=== PATIENT | female | born 1950 | race Caucasian/White ===

== ENCOUNTER 2018-09-14 05:14 | Observation (INO) ==
[2018-09-14] MEDS ORDERED: Naloxone 0.4 MG/ML INJ IVP PRN (08:35)
[2018-09-14] MEDS ORDERED: *HR* Dextrose 50 % in Water (Syg) 50 ML SYRINGE IVP PRN (08:37)
[2018-09-14] MEDS ORDERED: D5% in Water 1,000 ML IVC PRN (08:37)
[2018-09-14] MEDS ORDERED: Dextrose Gel 15 GM/37.5 ML TUBE PO PRN ×2 (08:37)
[2018-09-14] MEDS ORDERED: D5% in 0.45% NACL 1,000 ML IVC SCH (08:45)
[2018-09-14 11:05] LABS: Bilirubin,Urine Negative (Negative); Blood,Urine Moderate (Negative); Clarity,Urine Clear (Clear); Color,Urine Yellow (Yellow); Glucose,Urine (UA) Normal (Normal); Ketones,Urine Negative (Negative); Leukocyte Esterase,Urine Negative (Negative); Nitrite,Urine Negative (Negative); Protein,Urine Negative (Neg-Trace); Specific Gravity,Urine 1.008 (1.010-1.025); Urobilinogen,Urine Normal (Normal)
--- NOTE | 2018-09-14 11:05 | Internal Med History&Physical ---
Date of Encounter: 09/14/18 Time of Encounter: 10:57 Internal Medicine - H&P: HPI Chief complaint: fever and chills Plans for Post Hospital Care: Home History of present illness: Ms. Washington is a 68 year old female PMH of CLL, lupus and HTN. Patient presented to the ED due to 1 day history of fever and worsening generalized weakness. Patient reports feeling weak for the past week. but yesterday since 5am she has not been feeling well, which she describes as worsening of her weakness. Last night when she went to bed she felt like she was having a fever. which she describes as being diaphoretic and having chills. She took her temperature at home but the her machine did not read it. After this episode of chills and diaphoresis her weakness worsen and she decided to go to the ED. In the ED she was found to have a temperature of 102.7. She was given broad spectrum IV antibiotics and IV fluids and was transferred for further management. The patient reports supra-pubic abdominal pain and increased urinary frequency and urgency since yesterday. denies nausea, vomiting or shortness of breath. Reports she has been treated with antibiotics at least 7 times since April due to sinus infections. Bill any sick contacts. Past Med Surg Social Fam HX - Past Medical History Medical history: cancer, hypertension, other Additional medical history: CLL, lupus - Past Surgical History Surgical History: no surgical history, hysterectomy, orthopedic, other - Social History Smoking Status: Never smoker Smokeless Tobacco Status: No Alcohol use: none Drug use: none Internal Medicine - H&P: Meds ALPRAZolam [Xanax 0.5 MG Tablet] 0.5 mg PO Q8H PRN 05/04/15 [History] Amlodipine [Norvasc] 5 mg PO DAILY 05/04/15 [History] OxyCODONE/APAP 10/325 [Percocet 10/325 MG] 0.5 tab PO TID PRN 05/04/15 [History] Gabapentin [Neurontin] 300 mg PO DAILY 08/13/15 [History] Pantoprazole Sodium [Protonix] 40 mg PO DAILY 05/09/16 [History] Loratadine [Claritin] 10 mg PO DAILY 05/07/18 [History] Allergy/AdvReac Type Severity Reaction Status Date / Time adhesive tape Allergy Rash Verified 09/14/18 02:52 Penicillins [PCN] Allergy Anaphylaxis Verified 09/14/18 02:52 codeine AdvReac Vomiting Verified 09/14/18 02:52 doxycycline AdvReac Vomiting Verified 09/14/18 02:52 All Systems PM: A 10-system review of systems was performed and is negative for pertinent findings except as documented above in the HPI. - Constitutional Constitutional: chills, fever(s), malaise, weakness - EENT Eyes: no irritation, no itchy eyes - Cardiovascular Cardiovascular ROS IM: no chest pain, no dyspnea on exertion, no irregular heart rhythm, no lightheadedness, no orthopnea - Respiratory Respiratory: cough, no hemoptysis, no wheezing, no chest congestion, no excessive phlegm production, no change in phlegm color - Gastrointestinal Gastrointestinal: abdominal pain (supra-pubic area), no dysphagia, no melena, no nausea, no vomiting - Genitourinary Genitourinary: urinary frequency, urinary urgency, no dysuria - Musculoskeletal Musculoskeletal ROS IM: no back pain, no muscle weakness - Integumentary Integumentary IM: no erythema - Neurological Neurological ROS: no frequent falls, no headache(s) - Psychiatric Psychiatric: no anxiety, no hopelessness, no irritability - Endocrine Endocrine IM: no cold intolerance, no excessive sweating - Hematologic/Lymphatic Hematologic/Lymphatic: no lymphadenopathy - Allergic/Immunologic Allergic/Immunologic: no GI upset with certain foods Additional comments: Rest of the review of system negative. - Constitutional Vitals: Temp Pulse Resp BP Pulse Ox 98.5 F 86 16 174/68 96 09/14/18 10:54 09/14/18 10:54 09/14/18 10:54 09/14/18 10:54 09/14/18 10:54 Exam: Vitals: Reviewed General: Alert and oriented x4. In mild distress due to supra-pubic discomfort Skin: Normal color, no rash, no lesions. HEENT: EOM, pupils equal, round and reactive. Cardiovascular: RRR, normal S1 & S2, no rubs, murmurs or gallops. Lungs: CTA b/l, no wheezes or crackles. Abdomen: Soft, mildly tender in the supra-pubic area, no rigidity or guarding. Extremities: No deformity, no edema or tenderness, no joint swelling or clubbing. Neurological: Normal cognition and motor skills. Rest of the physical exam is non contributory Internal Med - H&P Results - Diagnostic Studies Chest x-ray Status: image reviewed by me (no focal abnormalities ) - Assessment and Plan (1) Urinary tract infection Current Visit: No Status: Acute Assessment and plan: patient with frequency, urgency and supra-pubic abdominal pain. started empirically on levofloxacin 750mg/IV daily Urine culture and blood culture ordered. Qualifiers: Urinary tract infection type: acute cystitis Hematuria presence: without hematuria Qualified Code(s): N30.00 - Acute cystitis without hematuria (2) Dehydration Current Visit: Yes Status: Acute Assessment and plan: due to poor PO intake over the past week plus fevere secondary to UTI. patient started on IV hydration with 0.45NS @75ml/hr (3) HTN (hypertension) Current Visit: Yes Status: Chronic Assessment and plan: patient on amlodipine 10mg/PO daily. 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 No B symptoms or indications for Rx. (5) DVT prophylaxis Current Visit: Yes Status: Acute Assessment and plan: started on heparin subq - Time Spent With Patient Total time spent is greater than 50% in coordination of care (as documented) at patient's floor/unit and/or counseling patient: Greater than 35 minutes (45)
[2018-09-14 11:09] LABS: Bacteria,Urine None Seen per hpf (None-Few); Hyaline Casts,Urine None Seen per lpf (None-Few); Squamous Epithelial Cell,Urine Many per lpf (None-Few); WBC,Urine 0-3 per hpf (0-3)
[2018-09-14] MEDS ORDERED: amLODIPine 5 MG TABLET PO SCH (11:15)
[2018-09-14] MEDS: Insulin LISPRO 300 UNITS/3 ML VIAL SQ SCH ×2 (12:39→17:44)
[2018-09-14 13:18] LABS: Estimated Average Glucose 160 mg/dl; Hemoglobin A1C 7.2 %
[2018-09-14] MEDS: *HR* Heparin 5,000 UNIT/ML VIAL SQ SCH ×2 (13:39→20:34)
[2018-09-14] MEDS: ALPRAZolam 0.25 MG TABLET PO SCH (14:28)
[2018-09-14] MEDS: *HR* OxyCODONE/APAP 10/325 TABLET PO PRN ×2 (14:29→20:26)
[2018-09-14] MEDS: amLODIPine 5 MG TABLET PO SCH (20:32)
[2018-09-14] MEDS ORDERED: Gabapentin 300 MG CAPSULE PO SCH (21:00)
[2018-09-14] MEDS ORDERED: ALPRAZolam 0.5 MG TABLET PO SCH (21:00)
[2018-09-15] MEDS: traMADol 50 MG TABLET PO PRN (02:33)
[2018-09-15 03:21] LABS: Hematocrit 38.2 % (35.3-44.9); Mean Corpuscular HGB Conc 31.4 g/dL (31.6-35.5); Mean Corpuscular Hemoglobin 30.4 pg (28.0-33.3); Mean Corpuscular Volume 96.7 fL (83.0-100.0); Platelet Count 133 K/mcL (140-400); Red Blood Count 3.95 M/mcL (3.82-4.97); Red Cell Distribution Width 13.4 % (11.5-14.5)
[2018-09-15 03:40] LABS: BUN/Creatinine Ratio 16 (6-26); Blood Urea Nitrogen 9 mg/dL (8-23); Calcium 9.1 mg/dL (8.6-10.3); Carbon Dioxide 23 mEq/L (23-29); Chloride 108 mEq/L (98-107); Glucose 177 mg/dL (70-105); Magnesium 1.8 mg/dL (1.6-2.6); Osmolality,Calculated 291 (280-300); Phosphorous 1.5 mg/dL (2.7-4.5); Potassium 3.7 mEq/L (3.5-5.1); Sodium 139 mEq/L (136-145); eGFR For Non-African Americans > 60 (> 60)
[2018-09-15 03:45] LABS: Monocytes # 1.7 K/mcL (0.0-1.3); Smudge Cells Present (Not Present)
[2018-09-15 03:46] LABS: Platelet Estimate Slight Decrease (Normal)
[2018-09-15] MEDS: *HR* Heparin 5,000 UNIT/ML VIAL SQ SCH ×3 (05:37→20:20)
[2018-09-15] MEDS: Insulin LISPRO 300 UNITS/3 ML VIAL SQ SCH ×3 (09:04→16:46)
[2018-09-15] MEDS: ALPRAZolam 0.25 MG TABLET PO SCH ×2 (09:07→18:58)
[2018-09-15] MEDS: Levofloxacin 750 MG/150 ML 750 MG/150 ML BAG IVPB SCH (09:07)
[2018-09-15] MEDS: *HR* OxyCODONE/APAP 10/325 TABLET PO PRN ×3 (09:11→21:38)
--- NOTE | 2018-09-15 10:42 | Internal Med Progress Note ---
Hospitalist Progress Note - Encounter Date of Encounter: 09/15/18 Time of Encounter: 10:39 - Subjective Interval History: No fever overnight. Patient is still feeling generalized weak but slight better. Review the lab with elevated white count. Vitals reviewed Patient denies nausea vomiting headache dizziness chest pain shortness of breath. Abdominal pain is better - Exam Vitals: Temp Pulse Resp BP Pulse Ox 98.5 F 89 16 156/75 92 09/15/18 06:39 09/15/18 06:39 09/15/18 06:39 09/15/18 06:39 09/15/18 06:39 Exam: Vitals: Reviewed General: Alert and oriented x4. No acute distress. Skin: Normal color, no rash, no lesions. HEENT: EOM, pupils equal, round and reactive. Cardiovascular: RRR, normal S1 & S2 Lungs: CTA b/l, no wheezes or crackles. Abdomen: Soft, mildly tender in the supra-pubic area, no rigidity or guarding. Extremities: No deformity, no edema Neurological: No focal neurological deficit. - Assessment and Plan (1) Urinary tract infection Current Visit: No Status: Acute Assessment and Plan: patient with frequency, urgency and supra-pubic abdominal pain-slight better clinically. started empirically on levofloxacin 750mg/IV daily Urine culture and blood culture ordered by admitting physician. 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 No B symptoms or indications for Rx. Patient has seen oncologist last week and in the process of discussion to his start further treatment if appropriate (3) HTN (hypertension) Current Visit: Yes Status: Chronic Assessment and Plan: patient on amlodipine 10mg/PO daily. Continue to monitor (4) Dehydration Current Visit: Yes Status: Acute Assessment and Plan: Stopped IV fluid. Encouraged oral intake (5) DVT prophylaxis Current Visit: Yes Status: Acute Assessment and Plan: started on heparin subq - Time Spent with Patient Total time spent is greater than 50% in coordination of care (as documented) at patient's floor/unit and/or counseling patient: 25 - 35 minutes Plan of Care Discussed with: patient Internal Medicine: Result - Labs CBC & Chem 7: 09/15/18 03:09 09/15/18 03:09 Labs: Short CBC 09/15/18 Range/Units 03:09 WBC 82.6 H* (4.3-11.1) K/mcL Hgb 12.0 D (11.5-15.4) g/dL Hct 38.2 (35.3-44.9) % Plt Count 133 L (140-400) K/mcL Neutrophils # 38.0 H (1.6-8.9) K/mcL BMP 09/15/18 03:09 Sodium 139 Potassium 3.7 Chloride 108 H Carbon Dioxide 23 BUN 9 Creatinine 0.56 L Glucose 177 H Calcium 9.1 Urine 09/14/18 Range/Units 10:49 Urine Color Yellow (Yellow) Urine Clarity Clear (Clear) Urine pH 7.0 (5.0-8.0) pH Units Ur Specific Owen 1.008 L (1.010-1.025) Urine Protein Negative (Neg-Trace) mg/dL Urine Glucose (UA) Normal (Normal) mg/dL Consult Discharge Plan - Plan Referrals: NONE,PCP [Primary Care Provider] - (1) Urinary tract infection Qualifiers: Urinary tract infection type: acute cystitis Hematuria presence: without hematuria Qualified Code(s): N30.00 - Acute cystitis without hematuria (3) HTN (hypertension) Qualifiers: Hypertension type: unspecified Qualified Code(s): I10 - Essential (primary) hypertension
[2018-09-15] MEDS ORDERED: ALPRAZolam 0.5 MG TABLET PO PRN (11:35)
[2018-09-15] MEDS ORDERED: Loratadine 10 MG TABLET PO PRN (11:35)
[2018-09-15] MEDS ORDERED: *HR* OxyCODONE/APAP 10/325 TABLET PO PRN (11:35)
[2018-09-15 12:56] LABS: Platelet Count 125 K/mcL (140-400); Red Cell Distribution Width 13.4 % (11.5-14.5)
[2018-09-15 12:57] LABS: Hematocrit 35.7 % (35.3-44.9); Hemoglobin 11.5 g/dL (11.5-15.4); Mean Corpuscular HGB Conc 32.2 g/dL (31.6-35.5); Mean Corpuscular Volume 96.2 fL (83.0-100.0); Mean Platelet Volume 10.2 fL (9.4-12.4); Red Blood Count 3.71 M/mcL (3.82-4.97)
[2018-09-15 13:13] LABS: Lymphocytes # 62.2 K/mcL (0.6-4.6); Neutrophils # 6.9 K/mcL (1.6-8.9); Platelet Estimate Decreased (Normal)
[2018-09-15] MEDS: ALPRAZolam 0.5 MG TABLET PO PRN ×2 (15:35→21:39)
[2018-09-15] MEDS: Gabapentin 300 MG CAPSULE PO SCH (20:18)
[2018-09-15] MEDS: amLODIPine 5 MG TABLET PO SCH (20:18)
[2018-09-16] MEDS: *HR* Heparin 5,000 UNIT/ML VIAL SQ SCH ×3 (05:11→20:49)
[2018-09-16] MEDS: traMADol 50 MG TABLET PO PRN (05:20)
[2018-09-16 06:04] LABS: BUN/Creatinine Ratio 15 (6-26); Blood Urea Nitrogen 8 mg/dL (8-23); Calcium 9.6 mg/dL (8.6-10.3); Carbon Dioxide 24 mEq/L (23-29); Chloride 104 mEq/L (98-107); Glucose 146 mg/dL (70-105); Osmolality,Calculated 291 (280-300); Potassium 3.4 mEq/L (3.5-5.1); Sodium 140 mEq/L (136-145); eGFR For Non-African Americans > 60 (> 60)
[2018-09-16] MEDS: *HR* OxyCODONE/APAP 10/325 TABLET PO PRN ×3 (07:45→21:46)
[2018-09-16] MEDS: Gabapentin 300 MG CAPSULE PO SCH ×2 (07:45→20:48)
[2018-09-16] MEDS: Insulin LISPRO 300 UNITS/3 ML VIAL SQ SCH ×3 (07:46→15:27)
[2018-09-16] MEDS: Levofloxacin 750 MG/150 ML 750 MG/150 ML BAG IVPB SCH (07:46)
--- NOTE | 2018-09-16 13:23 | Internal Med Progress Note ---
Hospitalist Progress Note - Encounter Date of Encounter: 09/16/18 Time of Encounter: 13:21 - Subjective Interval History: Feeling better in urinary complaint. No fever. Review the lab with trending down white count. Denies fever chills nausea vomiting headache dizziness chest pain shortness of breath diarrhea - Exam Vitals: Temp Pulse Resp BP Pulse Ox 98.2 F 77 15 130/66 92 09/16/18 10:18 09/16/18 10:18 09/16/18 10:18 09/16/18 10:18 09/16/18 10:18 Exam: Vitals: Reviewed General: Alert and oriented x4. No acute distress. HEENT: EOM, pupils equal, round and reactive. Cardiovascular: RRR, normal S1 & S2 Lungs: CTA b/l, no wheezes or crackles. Abdomen: Soft, mildly tender in the supra-pubic area-better, no rigidity or guarding. Extremities: No deformity, no edema Neurological: No focal neurological deficit. - Assessment and Plan (1) Urinary tract infection Current Visit: No Status: Acute Assessment and Plan: patient with frequency, urgency and supra-pubic abdominal pain-slight better clinically. started empirically on levofloxacin 750mg/IV daily blood culture ordered by admitting physician- later on got canceled. Urine culture report-? (2) Diabetes mellitus Current Visit: Yes Status: Acute Assessment and Plan: A1c 7.2. Newly diagnosed. Continue Accu-Chek and low-dose SSI. Plan was to discharge patient on low-dose OHA but patient want to discuss with her PCP before starting any medication. Diabetes education. 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 No B symptoms or indications for Rx. Patient has seen oncologist last week and in the process of discussion to consider starting further treatment if appropriate (4) HTN (hypertension) Current Visit: Yes Status: Chronic Assessment and Plan: well controlled. patient on amlodipine 10mg/PO daily. Continue to monitor (5) Dehydration Current Visit: Yes Status: Acute Assessment and Plan: Stopped IV fluid. Encouraged oral intake (6) Leukocytosis Current Visit: Yes Status: Acute Assessment and Plan: Baseline white count in 70s due to underlying CLL. On admission patient had white count and 80s. Initially blood culture was ordered by admitting physician but it got canceled later without mentioning reason. Now white count is trending down and almost back to baseline therefore will change antibiotic oral Levaquin 500 by mouth daily considering UTI underlying etiology for acute on chronic leukocytosis. urine culture was also not ordered on admission. Plan to discharge patient tomorrow if continued to improve. (7) DVT prophylaxis Current Visit: Yes Status: Acute Assessment and Plan: heparin subq (8) Hypophosphatemia Current Visit: Yes Status: Acute Assessment and Plan: Replacement and monitoring. - Time Spent with Patient Total time spent is greater than 50% in coordination of care (as documented) at patient's floor/unit and/or counseling patient: 25 - 35 minutes Plan of Care Discussed with: patient Internal Medicine: Result - Labs CBC & Chem 7: 09/15/18 12:39 09/16/18 05:08 Labs: BMP 09/16/18 05:08 Sodium 140 Potassium 3.4 L Chloride 104 Carbon Dioxide 24 BUN 8 Creatinine 0.55 L Glucose 146 H Calcium 9.6 Consult Discharge Plan - Plan Referrals: NONE,PCP [Primary Care Provider] - (1) Urinary tract infection Qualifiers: Urinary tract infection type: acute cystitis Hematuria presence: without hematuria Qualified Code(s): N30.00 - Acute cystitis without hematuria (2) Diabetes mellitus Qualifiers: Diabetes mellitus type: type 2 Diabetes mellitus senior living insulin use: without senior living use Diabetes mellitus complication status: without complication Qualified Code(s): E11.9 - Type 2 diabetes mellitus without complications (4) HTN (hypertension) Qualifiers: Hypertension type: unspecified Qualified Code(s): I10 - Essential (primary) hypertension (6) Leukocytosis Qualifiers: Leukocytosis type: unspecified Qualified Code(s): D72.829 - Elevated white blood cell count, unspecified
[2018-09-16] MEDS: ALPRAZolam 0.5 MG TABLET PO PRN ×2 (13:39→21:48)
[2018-09-16] MEDS: amLODIPine 5 MG TABLET PO SCH (20:48)
[2018-09-17 04:25] LABS: Mean Platelet Volume 10.5 fL (9.4-12.4)
[2018-09-17 04:26] LABS: Hematocrit 37.8 % (35.3-44.9); Mean Corpuscular HGB Conc 31.7 g/dL (31.6-35.5); Mean Corpuscular Hemoglobin 30.6 pg (28.0-33.3); Mean Corpuscular Volume 96.4 fL (83.0-100.0); Platelet Count 154 K/mcL (140-400); Red Blood Count 3.92 M/mcL (3.82-4.97); Red Cell Distribution Width 13.1 % (11.5-14.5)
[2018-09-17 04:46] LABS: BUN/Creatinine Ratio 13 (6-26); Blood Urea Nitrogen 8 mg/dL (8-23); Calcium 9.3 mg/dL (8.6-10.3); Carbon Dioxide 27 mEq/L (23-29); Chloride 106 mEq/L (98-107); Glucose 127 mg/dL (70-105); Osmolality,Calculated 292 (280-300); Potassium 3.6 mEq/L (3.5-5.1); Sodium 141 mEq/L (136-145); eGFR For Non-African Americans > 60 (> 60)
[2018-09-17 04:53] LABS: Lymphocytes # 54.9 K/mcL (0.6-4.6); Monocytes # 2.1 K/mcL (0.0-1.3); Neutrophils # 12.5 K/mcL (1.6-8.9); Platelet Estimate Normal (Normal)
[2018-09-17] MEDS: *HR* Heparin 5,000 UNIT/ML VIAL SQ SCH ×2 (04:54→13:50)
[2018-09-17] MEDS: traMADol 50 MG TABLET PO PRN ×3 (04:54→15:13)
[2018-09-17] MEDS: Gabapentin 300 MG CAPSULE PO SCH (07:21)
[2018-09-17] MEDS: Insulin LISPRO 300 UNITS/3 ML VIAL SQ SCH ×2 (07:22→11:42)
[2018-09-17] MEDS ORDERED: levoFLOXacin 500 MG TABLET PO SCH (09:00)
[2018-09-17 12:07] VITALS: BP 151/79
--- NOTE | 2018-09-17 14:18 | Discharge Summary ---
- NOTES TO OUTPATIENT PROVIDER Notes to Outpatient Provider: Follow with PCP in 3-5 days-discuss diabetes management. Keep follow-up appointment with oncologist Orders not resulted at time of discharge: Pending orders 09/18/18 04:00 Basic Metabolic Panel AM 0400 CBC [Complete Blood Count] [HEME] AM 0400 Date of Encounter: 09/17/18 Time of Encounter: 14:16 - Discharge Diagnosis (1) Urinary tract infection Priority: Primary Status: Acute Assessment and Plan: On admission patient with frequency, urgency and supra-pubic abdominal pain- slight better clinically. started empirically on levofloxacin 750mg/IV daily blood culture ordered by admitting physician- later on got canceled. Urine culture report-sample not collected Patient will be discharged on levofloxacin 500 mg by mouth daily-total treatment 7 days. (2) Diabetes mellitus Priority: Secondary Status: Acute Assessment and Plan: A1c 7.2. Newly diagnosed. Earlier Plan was to discharge patient on low-dose OHA but patient want to discuss with her PCP before starting any medication. Diabetes education. 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 No B symptoms or indications for Rx. Patient has seen oncologist last week and in the process of discussion to consider starting further treatment if appropriate (4) HTN (hypertension) Priority: Primary Status: Chronic Assessment and Plan: well controlled. Blood pressure was running high therefore amlodipine increased to 10 mg daily. Patient was taking 5 mg by mouth daily at home. Needs to monitor BP with the help of PCP Qualifiers: Hypertension type: unspecified Qualified Code(s): I10 - Essential (primary) hypertension (5) Dehydration Priority: Primary Status: Acute Assessment and Plan: Improved. Stopped IV fluid. Encouraged oral intake (6) Leukocytosis Priority: Primary Status: Acute Assessment and Plan: Baseline white count in 70s due to underlying CLL. On admission patient had white count and 80s. Initially blood culture was ordered by admitting physician but it got canceled later without mentioning reason. Now white count is trending down and almost back to baseline Qualifiers: Leukocytosis type: unspecified Qualified Code(s): D72.829 - Elevated white blood cell count, unspecified (7) Hypophosphatemia Priority: Primary Status: Acute Assessment and Plan: Mild. Replaced Hospital course: Ms. Washington is a 68 year old female patient got admitted for UTI with leukocytosis. Recently dated in diagnosis section of discharge summary. At the time of discharge patient clinically hemodynamically stable, tolerating oral diet and ambulating well. Discharge discussed with: patient, nurse - Time Spent with Patient Total time spent providing and/or coordinating discharge services: Time spent: Less than 30 minutes - Discharge Medications Prescriptions: New amLODIPine [Norvasc] 10 mg PO HS #30 tablet levoFLOXacin [Levaquin] 500 mg PO DAILY #4 tablet Continue ALPRAZolam [Xanax 0.5 MG Tablet] 0.25 mg PO QAM PRN PRN Reason: Anxiety Gabapentin [Neurontin] 300 mg PO BID Pantoprazole Sodium [Protonix] 40 mg PO DAILY Loratadine [Claritin] 10 mg PO DAILY PRN PRN Reason: Allergy Symptoms ALPRAZolam [Xanax 0.5 MG Tablet] 0.25 mg PO 1200 PRN PRN Reason: Anxiety ALPRAZolam [Xanax 0.5 MG Tablet] 0.5 mg PO HS PRN PRN Reason: Anxiety OxyCODONE/APAP 10/325 [Percocet 10/325 MG] 0.5 tab PO TID PRN PRN Reason: Pain Discontinued Amlodipine Besylate 5 mg PO HS Home Medications: ALPRAZolam [Xanax 0.5 MG Tablet] 0.25 mg PO QAM PRN 05/04/15 [History] Gabapentin [Neurontin] 300 mg PO BID 08/13/15 [History] Pantoprazole Sodium [Protonix] 40 mg PO DAILY 05/09/16 [History] Loratadine [Claritin] 10 mg PO DAILY PRN 05/07/18 [History] ALPRAZolam [Xanax 0.5 MG Tablet] 0.25 mg PO 1200 PRN 09/14/18 [History] ALPRAZolam [Xanax 0.5 MG Tablet] 0.5 mg PO HS PRN 09/14/18 [History] OxyCODONE/APAP 10/325 [Percocet 10/325 MG] 0.5 tab PO TID PRN 09/14/18 [History] amLODIPine [Norvasc] 10 mg PO HS #30 tablet 09/17/18 [Rx] levoFLOXacin [Levaquin] 500 mg PO DAILY #4 tablet 09/17/18 [Rx] Allergies/Adverse Reactions: Allergy/AdvReac Type Severity Reaction Status Date / Time adhesive tape Allergy Rash Verified 09/14/18 02:52 Penicillins [PCN] Allergy Anaphylaxis Verified 09/14/18 02:52 codeine AdvReac Vomiting Verified 09/14/18 02:52 doxycycline AdvReac Vomiting Verified 09/14/18 02:52 Date of admission: 09/14/18 08:13 Primary care physician: PCP NONE Consults: 09/14/18 11:27 Consult to Digital Ad Trafficker [CONS] Routine Reason for SW Consult: financial concerns 09/15/18 11:35 Consult to Diabetes Education [CONS] Routine Comment: Reason for Consult: Diabetes education and supply - Constitutional Vitals: Temp Pulse Resp BP Pulse Ox 98.3 F 89 16 151/79 93 09/17/18 12:00 09/17/18 12:00 09/17/18 12:00 09/17/18 12:00 09/17/18 12:00 Exam: General appearance: No acute distress, A&O X 3 Respiratory exam: Clear to auscultation bilaterally Cardiovascular exam: Regular rate and rhythm, no systolic murmur Abdominal exam: Soft, nontender, nondistended, positive bowel sounds Extremities exam: No calf tenderness, no pedal edema Present: Neurological exam: No focal neurological deficit. - Patient Status Disposition: Home, Self-Care Condition: Fair Overall status at discharge: patient is progressing back to baseline - Discharge Instructions Follow Up With: Edson Palmer MD [Partnered Physician] - 09/24/18 8:00 am Jessie Malone CNP [Advanced Practice Nurse] - 09/24/18 4:30 pm - Diet and Activity Activity: increase activity as tolerated Diet: diabetic diet, low fat, low cholesterol, low salt diet
[2018-09-17] MEDS: ALPRAZolam 0.5 MG TABLET PO PRN (15:13)
[2018-09-17] MEDS ORDERED: amLODIPine 5 MG TABLET PO SCH (21:00)
== END 2018-09-17 16:23 | disposition home or self-care (01) ==
LOC: 3ANU
PROVIDERS: ADMIT Family Medicine; ATTEND General Practice

== ENCOUNTER 2021-06-03 19:54 | Inpatient (IN) ==
[2021-06-04] MEDS ORDERED: Acetaminophen 325 MG TABLET PO PRN (01:59)
[2021-06-04] MEDS ORDERED: Ondansetron 4 MG/2 ML VIAL IVP PRN (01:59)
[2021-06-04] MEDS ORDERED: Naloxone 0.4 MG/ML INJ IVP PRN (01:59)
[2021-06-04] MEDS: Ipratropium 1 PUFF INHALER IH SCH ×5 (04:52→19:52)
[2021-06-04] MEDS: *HR* Heparin 5,000 UNIT/ML VIAL SQ SCH ×2 (05:43→17:39)
[2021-06-04] MEDS ORDERED: Isovue-370 500 ML BOTTLE IVP ONE (06:33)
[2021-06-04] MEDS ORDERED: Dextrose Gel 15 GM/37.5 ML TUBE PO PRN ×2 (06:36)
[2021-06-04] MEDS ORDERED: D5% in Water 1,000 ML IVC PRN (06:36)
[2021-06-04] MEDS ORDERED: *HR* Dextrose 50 % in Water (Syg) 50 ML SYRINGE IVP PRN (06:36)
[2021-06-04 08:27] LABS: Hematocrit 39.5 % (35.3-44.9); Hemoglobin 12.4 g/dL (11.5-15.4); Mean Corpuscular HGB Conc 31.4 g/dL (31.6-35.5); Mean Corpuscular Hemoglobin 30.3 pg (28.0-33.3); Mean Corpuscular Volume 96.6 fL (83.0-100.0); Mean Platelet Volume 10.6 fL (9.4-12.4); Platelet Count 335 K/mcL (140-400); Red Blood Count 4.09 M/mcL (3.82-4.97)
[2021-06-04 08:33] LABS: INR 1.4; Prothrombin Time 15.9 Seconds (9.4-12.1)
[2021-06-04] MEDS: Insulin LISPRO 300 UNITS/3 ML VIAL SUBQ SCH ×3 (08:36→17:21)
[2021-06-04 08:46] LABS: Alanine Aminotransferase 81 Units/L (7-52); Albumin 3.4 g/dL (3.5-5.7); Albumin/Globulin Ratio 0.9 (1.1-2.2); Alkaline Phosphatase 159 Units/L (34-104); Aspartate Amino Transferase 94 Units/L (13-39); BUN/Creatinine Ratio 29 (6-26); Bilirubin,Total 2.6 mg/dL (0.3-1.0); Blood Urea Nitrogen 23 mg/dL (8-23); Calcium 9.6 mg/dL (8.6-10.3); Carbon Dioxide 29 mEq/L (23-29); Chloride 102 mEq/L (98-107); Globulin 3.8 g/dL (2.4-3.5); Glucose 207 mg/dL (70-105); Magnesium 2.2 mg/dL (1.6-2.6); Osmolality,Calculated 292 (280-300); Potassium 3.3 mEq/L (3.5-5.1); Sodium 136 mEq/L (136-145); Total Protein 7.2 g/dL (6.4-8.9); Troponin I 0.03 ng/mL (< 0.04); eGFR For African Americans > 60 (> 60); eGFR For Non-African Americans > 60 (> 60)
[2021-06-04] MEDS ORDERED: levoFLOXacin 750 MG/150 ML 750 MG/150 ML BAG IVPB SCH (09:00)
[2021-06-04 10:31] LABS: Estimated Average Glucose 163 mg/dl; Hemoglobin A1C 7.3 %
[2021-06-04] MEDS: amLODIPine 5 MG TABLET PO SCH ×2 (12:53→20:30)
[2021-06-04] MEDS: ALPRAZolam 0.5 MG TABLET PO PRN ×2 (13:24→20:30)
[2021-06-04] MEDS: *HR* OxyCODONE/APAP 10/325 TABLET PO PRN ×2 (13:53→20:28)
[2021-06-04 14:21] LABS: Lymphocytes # 54.4 K/mcL (0.6-4.6); Monocytes # 2.7 K/mcL (0.0-1.3); Neutrophils # 10.9 K/mcL (1.6-8.9)
[2021-06-04 14:22] LABS: Platelet Estimate Normal (Normal); Smudge Cells Present (Not Present)
[2021-06-05] MEDS: Ipratropium 1 PUFF INHALER IH SCH ×7 (00:15→23:34)
[2021-06-05] MEDS: Insulin LISPRO 300 UNITS/3 ML VIAL SUBQ SCH ×5 (01:45→20:27)
[2021-06-05] MEDS: Gabapentin 300 MG CAPSULE PO SCH ×2 (01:45→20:38)
[2021-06-05 03:34] LABS: Hematocrit 37.4 % (35.3-44.9); Hemoglobin 11.8 g/dL (11.5-15.4); Mean Corpuscular HGB Conc 31.6 g/dL (31.6-35.5); Mean Corpuscular Hemoglobin 30.5 pg (28.0-33.3); Mean Corpuscular Volume 96.6 fL (83.0-100.0); Mean Platelet Volume 10.8 fL (9.4-12.4); Platelet Count 339 K/mcL (140-400); Red Blood Count 3.87 M/mcL (3.82-4.97)
[2021-06-05 03:42] LABS: White Blood Count 62.5 K/mcL (4.3-11.1)
[2021-06-05 03:55] LABS: Alanine Aminotransferase 77 Units/L (7-52); Albumin 3.2 g/dL (3.5-5.7); Albumin/Globulin Ratio 0.9 (1.1-2.2); Alkaline Phosphatase 133 Units/L (34-104); Aspartate Amino Transferase 82 Units/L (13-39); BUN/Creatinine Ratio 34 (6-26); Bilirubin,Total 1.8 mg/dL (0.3-1.0); Blood Urea Nitrogen 33 mg/dL (8-23); C-Reactive Protein 109 mg/L (Less than 10); Calcium 9.9 mg/dL (8.6-10.3); Carbon Dioxide 29 mEq/L (23-29); Chloride 103 mEq/L (98-107); Globulin 3.5 g/dL (2.4-3.5); Glucose 228 mg/dL (70-105); Lactate Dehydrogenase 304 Units/L (140-271); Osmolality,Calculated 304 (280-300); Potassium 3.6 mEq/L (3.5-5.1); Sodium 140 mEq/L (136-145); Total Protein 6.7 g/dL (6.4-8.9); eGFR For African Americans > 60 (> 60); eGFR For Non-African Americans 56 (> 60)
[2021-06-05 04:13] LABS: Ferritin 1327 ng/mL (10-120)
[2021-06-05] MEDS: *HR* Enoxaparin 40 MG/0.4 ML SYRINGE SQ SCH (05:46)
[2021-06-05] MEDS: levoFLOXacin 750 MG/150 ML 750 MG/150 ML BAG IVPB SCH (08:17)
[2021-06-05] MEDS ORDERED: Saliva Stimulant 44.3ml BOTTLE PO PRN (11:57)
[2021-06-05] MEDS: *HR* OxyCODONE/APAP 10/325 TABLET PO PRN ×2 (12:23→20:50)
[2021-06-05] MEDS: ALPRAZolam 0.5 MG TABLET PO PRN ×2 (13:49→20:38)
[2021-06-05] MEDS: amLODIPine 5 MG TABLET PO SCH (20:38)
[2021-06-06] MEDS: Ipratropium 1 PUFF INHALER IH SCH ×5 (03:25→20:01)
[2021-06-06] MEDS: *HR* Enoxaparin 40 MG/0.4 ML SYRINGE SQ SCH (05:05)
[2021-06-06 05:35] LABS: Mean Corpuscular Volume 97.4 fL (83.0-100.0); Red Cell Distribution Width 13.3 % (11.5-14.5)
[2021-06-06 05:36] LABS: Hematocrit 33.8 % (35.3-44.9); Hemoglobin 10.5 g/dL (11.5-15.4); Mean Corpuscular HGB Conc 31.1 g/dL (31.6-35.5); Mean Corpuscular Hemoglobin 30.3 pg (28.0-33.3); Mean Platelet Volume 10.5 fL (9.4-12.4); Platelet Count 357 K/mcL (140-400); Red Blood Count 3.47 M/mcL (3.82-4.97)
[2021-06-06 05:38] LABS: White Blood Count 68.1 K/mcL (4.3-11.1)
[2021-06-06 05:53] LABS: Alanine Aminotransferase 64 Units/L (7-52); Alkaline Phosphatase 133 Units/L (34-104); Aspartate Amino Transferase 53 Units/L (13-39); BUN/Creatinine Ratio 47 (6-26); Bilirubin,Total 1.3 mg/dL (0.3-1.0); Blood Urea Nitrogen 46 mg/dL (8-23); Calcium 9.5 mg/dL (8.6-10.3); Carbon Dioxide 32 mEq/L (23-29); Chloride 103 mEq/L (98-107); Globulin 2.9 g/dL (2.4-3.5); Glucose 226 mg/dL (70-105); Lactate Dehydrogenase 254 Units/L (140-271); Osmolality,Calculated 315 (280-300); Potassium 3.9 mEq/L (3.5-5.1); Sodium 143 mEq/L (136-145); Total Protein 5.9 g/dL (6.4-8.9); eGFR For African Americans > 60 (> 60); eGFR For Non-African Americans 56 (> 60)
[2021-06-06] MEDS: *HR* OxyCODONE/APAP 10/325 TABLET PO PRN ×2 (08:58→19:46)
[2021-06-06] MEDS: levoFLOXacin 750 MG/150 ML 750 MG/150 ML BAG IVPB SCH (08:59)
[2021-06-06] MEDS: Insulin LISPRO 300 UNITS/3 ML VIAL SUBQ SCH ×4 (08:59→19:29)
[2021-06-06] MEDS: ALPRAZolam 0.5 MG TABLET PO PRN ×2 (08:59→12:03)
[2021-06-06 09:22] LABS: C-Reactive Protein 53 mg/L (Less than 10); Ferritin 834 ng/mL (10-120)
[2021-06-06 16:06] LABS: Hepatitis B Surface Antigen Nonreactive (Nonreactive)
[2021-06-06 16:34] LABS: Hepatitis B Core IgM Nonreactive (Nonreactive)
[2021-06-06 16:35] LABS: Hepatitis C Virus Antibody Nonreactive (Nonreactive)
[2021-06-06 16:36] LABS: Hepatitis A Antibody IgM Nonreactive (Nonreactive)
[2021-06-06] MEDS ORDERED: Nitroglycerin 0.4 MG TAB.SUBL SL PRN (17:58)
[2021-06-06] MEDS ORDERED: Bismuth Subsalicylate 120 ML ORAL SUSPENSION PO PRN (17:59)
[2021-06-06] MEDS ORDERED: Isovue-370 500 ML BOTTLE IVP ONE (18:47)
[2021-06-06] MEDS ORDERED: Perflutren Lipid Microsphere 1.3 ML in 0.9 % Sodium Chloride 8.7 ML IVP PRN (18:50)
[2021-06-06] MEDS: amLODIPine 5 MG TABLET PO SCH (19:45)
[2021-06-06] MEDS: Gabapentin 300 MG CAPSULE PO SCH (19:45)
[2021-06-07] MEDS: Ipratropium 1 PUFF INHALER IH SCH ×6 (00:21→19:47)
[2021-06-07] MEDS: *HR* Enoxaparin 40 MG/0.4 ML SYRINGE SQ SCH (04:42)
[2021-06-07 06:07] LABS: Mean Corpuscular Volume 100.3 fL (83.0-100.0)
[2021-06-07 06:08] LABS: Hematocrit 37.4 % (35.3-44.9); Hemoglobin 11.4 g/dL (11.5-15.4); Mean Corpuscular HGB Conc 30.5 g/dL (31.6-35.5); Mean Corpuscular Hemoglobin 30.6 pg (28.0-33.3); Mean Platelet Volume 10.8 fL (9.4-12.4); Platelet Count 369 K/mcL (140-400); Red Blood Count 3.73 M/mcL (3.82-4.97); Red Cell Distribution Width 13.5 % (11.5-14.5)
[2021-06-07 06:14] LABS: White Blood Count 74.5 K/mcL (4.3-11.1)
[2021-06-07] MEDS: Insulin LISPRO 300 UNITS/3 ML VIAL SUBQ SCH ×4 (08:03→20:21)
[2021-06-07] MEDS: levoFLOXacin 750 MG/150 ML 750 MG/150 ML BAG IVPB SCH (08:48)
[2021-06-07] MEDS: ALPRAZolam 0.5 MG TABLET PO PRN ×2 (09:08→20:13)
[2021-06-07] MEDS: *HR* OxyCODONE/APAP 10/325 TABLET PO PRN (09:09)
[2021-06-07 11:07] LABS: Alanine Aminotransferase 56 Units/L (7-52); Albumin 3.3 g/dL (3.5-5.7); Albumin/Globulin Ratio 1.1 (1.1-2.2); Alkaline Phosphatase 117 Units/L (34-104); Aspartate Amino Transferase 44 Units/L (13-39); BUN/Creatinine Ratio 45 (6-26); Bilirubin,Total 1.3 mg/dL (0.3-1.0); Blood Urea Nitrogen 41 mg/dL (8-23); C-Reactive Protein 36 mg/L (Less than 10); Calcium 9.7 mg/dL (8.6-10.3); Carbon Dioxide 30 mEq/L (23-29); Chloride 102 mEq/L (98-107); Globulin 3.1 g/dL (2.4-3.5); Glucose 215 mg/dL (70-105); Osmolality,Calculated 309 (280-300); Potassium 4.4 mEq/L (3.5-5.1); Sodium 141 mEq/L (136-145); Total Protein 6.4 g/dL (6.4-8.9); eGFR For African Americans > 60 (> 60); eGFR For Non-African Americans 60 (> 60)
[2021-06-07] MEDS: Gabapentin 300 MG CAPSULE PO SCH (20:12)
[2021-06-07] MEDS: amLODIPine 5 MG TABLET PO SCH (20:12)
[2021-06-07] MEDS: Acetaminophen 325 MG TABLET PO PRN (20:13)
[2021-06-07] MEDS ORDERED: Ipratropium 1 PUFF INHALER IH PRN (21:37)
[2021-06-08] MEDS: *HR* Enoxaparin 40 MG/0.4 ML SYRINGE SQ SCH (04:56)
[2021-06-08] MEDS: ALPRAZolam 0.5 MG TABLET PO PRN ×3 (06:26→21:32)
[2021-06-08] MEDS: *HR* OxyCODONE/APAP 10/325 TABLET PO PRN ×2 (06:27→21:31)
[2021-06-08] MEDS: Benzonatate 100 MG CAPSULE PO PRN ×2 (08:47→17:28)
[2021-06-08] MEDS: levoFLOXacin 750 MG TABLET PO SCH (08:47)
[2021-06-08] MEDS: Insulin LISPRO 300 UNITS/3 ML VIAL SUBQ SCH ×4 (08:49→21:32)
[2021-06-08 10:06] LABS: Mean Platelet Volume 10.6 fL (9.4-12.4); Red Cell Distribution Width 13.2 % (11.5-14.5)
[2021-06-08 10:07] LABS: Hematocrit 38.2 % (35.3-44.9); Hemoglobin 11.9 g/dL (11.5-15.4); Mean Corpuscular HGB Conc 31.2 g/dL (31.6-35.5); Mean Corpuscular Volume 99.5 fL (83.0-100.0); Platelet Count 377 K/mcL (140-400); Red Blood Count 3.84 M/mcL (3.82-4.97)
[2021-06-08 10:23] LABS: White Blood Count 86.6 K/mcL (4.3-11.1)
[2021-06-08 10:26] LABS: Alanine Aminotransferase 51 Units/L (7-52); Albumin 3.3 g/dL (3.5-5.7); Albumin/Globulin Ratio 1.1 (1.1-2.2); Alkaline Phosphatase 127 Units/L (34-104); Aspartate Amino Transferase 35 Units/L (13-39); BUN/Creatinine Ratio 46 (6-26); Bilirubin,Total 1.3 mg/dL (0.3-1.0); Blood Urea Nitrogen 36 mg/dL (8-23); C-Reactive Protein 21 mg/L (Less than 10); Calcium 9.7 mg/dL (8.6-10.3); Carbon Dioxide 30 mEq/L (23-29); Chloride 102 mEq/L (98-107); Glucose 225 mg/dL (70-105); Osmolality,Calculated 311 (280-300); Potassium 4.4 mEq/L (3.5-5.1); Sodium 143 mEq/L (136-145); Total Protein 6.3 g/dL (6.4-8.9); eGFR For African Americans > 60 (> 60); eGFR For Non-African Americans > 60 (> 60)
[2021-06-08] MEDS: Nystatin SUSP 5 ML UD.LIQ BC SCH ×4 (11:12→21:32)
[2021-06-08] MEDS: Gabapentin 300 MG CAPSULE PO SCH (21:32)
[2021-06-08] MEDS: amLODIPine 5 MG TABLET PO SCH (21:32)
[2021-06-09] MEDS: *HR* Enoxaparin 40 MG/0.4 ML SYRINGE SQ SCH (05:40)
[2021-06-09] MEDS: Nystatin SUSP 5 ML UD.LIQ BC SCH ×4 (08:53→20:16)
[2021-06-09] MEDS: levoFLOXacin 750 MG TABLET PO SCH (08:53)
[2021-06-09] MEDS: Insulin LISPRO 300 UNITS/3 ML VIAL SUBQ SCH ×4 (08:55→23:47)
[2021-06-09] MEDS: ALPRAZolam 0.5 MG TABLET PO PRN ×2 (09:52→20:17)
[2021-06-09] MEDS: *HR* OxyCODONE/APAP 10/325 TABLET PO PRN ×2 (09:52→20:16)
[2021-06-09 13:35] LABS: Red Cell Distribution Width 13.2 % (11.5-14.5)
[2021-06-09 13:36] LABS: Hematocrit 38.6 % (35.3-44.9); Mean Corpuscular HGB Conc 31.1 g/dL (31.6-35.5); Mean Corpuscular Hemoglobin 30.9 pg (28.0-33.3); Mean Corpuscular Volume 99.5 fL (83.0-100.0); Mean Platelet Volume 10.7 fL (9.4-12.4); Platelet Count 329 K/mcL (140-400); Red Blood Count 3.88 M/mcL (3.82-4.97)
[2021-06-09 13:45] LABS: White Blood Count 87.6 K/mcL (4.3-11.1)
[2021-06-09 13:57] LABS: Alanine Aminotransferase 43 Units/L (7-52); Albumin 3.3 g/dL (3.5-5.7); Albumin/Globulin Ratio 1.2 (1.1-2.2); Alkaline Phosphatase 112 Units/L (34-104); Aspartate Amino Transferase 28 Units/L (13-39); BUN/Creatinine Ratio 48 (6-26); Bilirubin,Total 1.3 mg/dL (0.3-1.0); Blood Urea Nitrogen 37 mg/dL (8-23); Calcium 9.6 mg/dL (8.6-10.3); Carbon Dioxide 29 mEq/L (23-29); Chloride 104 mEq/L (98-107); Globulin 2.7 g/dL (2.4-3.5); Glucose 312 mg/dL (70-105); Osmolality,Calculated 311 (280-300); Potassium 4.7 mEq/L (3.5-5.1); Sodium 140 mEq/L (136-145); eGFR For African Americans > 60 (> 60); eGFR For Non-African Americans > 60 (> 60)
[2021-06-09] MEDS: Gabapentin 300 MG CAPSULE PO SCH (20:16)
[2021-06-09] MEDS: amLODIPine 5 MG TABLET PO SCH (20:16)
[2021-06-10 00:49] LABS: Basophils % 0.1 %; Monocytes % 0.9 %
[2021-06-10 00:51] LABS: Basophils # 0.1 K/mcL (0.0-0.2); Hematocrit 36.9 % (35.3-44.9); Hemoglobin 11.4 g/dL (11.5-15.4); Immature Granulocytes % 0.4 % (0-4); Lymphocytes % 89.6 %; Mean Corpuscular HGB Conc 30.9 g/dL (31.6-35.5); Mean Corpuscular Hemoglobin 30.4 pg (28.0-33.3); Mean Corpuscular Volume 98.4 fL (83.0-100.0); Mean Platelet Volume 10.6 fL (9.4-12.4); Monocytes # 0.7 K/mcL (0.0-1.3); Neutrophils # 7.1 K/mcL (1.6-8.9); Platelet Count 291 K/mcL (140-400); Red Blood Count 3.75 M/mcL (3.82-4.97); Red Cell Distribution Width 13.1 % (11.5-14.5)
[2021-06-10 01:06] LABS: Lymphocytes # 70.3 K/mcL (0.6-4.6)
[2021-06-10 01:09] LABS: White Blood Count 78.4 K/mcL (4.3-11.1)
[2021-06-10 01:21] LABS: Platelet Estimate Normal (Normal); Smudge Cells Present (Not Present)
[2021-06-10 01:31] LABS: Alanine Aminotransferase 40 Units/L (7-52); Albumin 3.1 g/dL (3.5-5.7); Albumin/Globulin Ratio 1.1 (1.1-2.2); Alkaline Phosphatase 113 Units/L (34-104); Aspartate Amino Transferase 25 Units/L (13-39); BUN/Creatinine Ratio 51 (6-26); Bilirubin,Total 1.1 mg/dL (0.3-1.0); Blood Urea Nitrogen 37 mg/dL (8-23); Calcium 9.5 mg/dL (8.6-10.3); Carbon Dioxide 29 mEq/L (23-29); Chloride 107 mEq/L (98-107); Ferritin 487 ng/mL (10-120); Globulin 2.7 g/dL (2.4-3.5); Glucose 229 mg/dL (70-105); Lactate Dehydrogenase 252 Units/L (140-271); Magnesium 2.2 mg/dL (1.6-2.6); Osmolality,Calculated 310 (280-300); Potassium 5.4 mEq/L (3.5-5.1); Sodium 142 mEq/L (136-145); Total Protein 5.8 g/dL (6.4-8.9); eGFR For African Americans > 60 (> 60); eGFR For Non-African Americans > 60 (> 60)
[2021-06-10] MEDS: Insulin LISPRO 300 UNITS/3 ML VIAL SUBQ SCH ×4 (07:58→20:27)
[2021-06-10] MEDS: *HR* Enoxaparin 40 MG/0.4 ML SYRINGE SQ SCH (08:00)
[2021-06-10] MEDS ORDERED: SODIUM ZIRCONIUM CYCLOSILICATE 5 GM POWD.PACK PO ONE (08:00)
[2021-06-10] MEDS: levoFLOXacin 750 MG TABLET PO SCH (08:01)
[2021-06-10] MEDS: Nystatin SUSP 5 ML UD.LIQ BC SCH ×4 (08:01→20:28)
[2021-06-10] MEDS: ALPRAZolam 0.5 MG TABLET PO PRN ×3 (08:18→23:59)
[2021-06-10] MEDS: *HR* OxyCODONE/APAP 10/325 TABLET PO PRN (08:19)
[2021-06-10] MEDS ORDERED: *HR* OxyCODONE/APAP 10/325 TABLET PO PRN ×3 (13:35→17:00)
[2021-06-10] MEDS: Furosemide 20 MG/2 ML VIAL IVP SCH (15:28)
[2021-06-10] MEDS ORDERED: *HR* OxyCODONE/APAP 5/325 TABLET PO PRN (16:11)
[2021-06-10] MEDS: amLODIPine 5 MG TABLET PO SCH (20:28)
[2021-06-10] MEDS: Gabapentin 300 MG CAPSULE PO SCH (20:28)
[2021-06-10] MEDS: Acetaminophen 325 MG TABLET PO PRN (23:59)
[2021-06-11 05:12] LABS: Mean Platelet Volume 10.5 fL (9.4-12.4)
[2021-06-11 05:14] LABS: Hematocrit 36.4 % (35.3-44.9); Mean Corpuscular HGB Conc 30.2 g/dL (31.6-35.5); Mean Corpuscular Hemoglobin 29.6 pg (28.0-33.3); Mean Corpuscular Volume 98.1 fL (83.0-100.0); Platelet Count 254 K/mcL (140-400); Red Blood Count 3.71 M/mcL (3.82-4.97)
[2021-06-11 05:23] LABS: White Blood Count 87.6 K/mcL (4.3-11.1)
[2021-06-11 05:32] LABS: Alanine Aminotransferase 43 Units/L (7-52); Albumin 3.1 g/dL (3.5-5.7); Albumin/Globulin Ratio 1.3 (1.1-2.2); Alkaline Phosphatase 100 Units/L (34-104); Aspartate Amino Transferase 35 Units/L (13-39); BUN/Creatinine Ratio 51 (6-26); Bilirubin,Total 1.3 mg/dL (0.3-1.0); Blood Urea Nitrogen 36 mg/dL (8-23); Calcium 9.2 mg/dL (8.6-10.3); Carbon Dioxide 30 mEq/L (23-29); Chloride 107 mEq/L (98-107); Globulin 2.4 g/dL (2.4-3.5); Glucose 178 mg/dL (70-105); Osmolality,Calculated 301 (280-300); Potassium 4.3 mEq/L (3.5-5.1); Sodium 139 mEq/L (136-145); Total Protein 5.5 g/dL (6.4-8.9); eGFR For African Americans > 60 (> 60); eGFR For Non-African Americans > 60 (> 60)
[2021-06-11] MEDS: Insulin LISPRO 300 UNITS/3 ML VIAL SUBQ SCH ×4 (06:23→20:13)
[2021-06-11] MEDS: *HR* Enoxaparin 40 MG/0.4 ML SYRINGE SQ SCH (06:23)
[2021-06-11 06:35] LABS: Neutrophils # 9.6 K/mcL (1.6-8.9)
[2021-06-11 06:36] LABS: Platelet Estimate Normal (Normal); Smudge Cells Present (Not Present)
[2021-06-11] MEDS: Furosemide 20 MG/2 ML VIAL IVP SCH (08:43)
[2021-06-11] MEDS: Nystatin SUSP 5 ML UD.LIQ BC SCH ×4 (08:44→20:13)
[2021-06-11] MEDS: ALPRAZolam 0.5 MG TABLET PO PRN ×3 (08:45→20:18)
[2021-06-11] MEDS: *HR* OxyCODONE/APAP 5/325 TABLET PO PRN ×2 (12:55→20:16)
[2021-06-11] MEDS: amLODIPine 5 MG TABLET PO SCH (20:13)
[2021-06-11] MEDS: Gabapentin 300 MG CAPSULE PO SCH (20:13)
[2021-06-12] MEDS: *HR* Enoxaparin 40 MG/0.4 ML SYRINGE SQ SCH (06:16)
[2021-06-12 06:37] LABS: Red Cell Distribution Width 12.8 % (11.5-14.5)
[2021-06-12 06:39] LABS: Hematocrit 40.5 % (35.3-44.9); Hemoglobin 12.5 g/dL (11.5-15.4); Mean Corpuscular HGB Conc 30.9 g/dL (31.6-35.5); Mean Corpuscular Hemoglobin 30.6 pg (28.0-33.3); Mean Platelet Volume 10.8 fL (9.4-12.4); Platelet Count 230 K/mcL (140-400); Red Blood Count 4.09 M/mcL (3.82-4.97)
[2021-06-12 06:43] LABS: White Blood Count 101.5 K/mcL (4.3-11.1)
[2021-06-12 06:56] LABS: Alanine Aminotransferase 58 Units/L (7-52); Albumin 3.4 g/dL (3.5-5.7); Albumin/Globulin Ratio 1.3 (1.1-2.2); Alkaline Phosphatase 118 Units/L (34-104); Aspartate Amino Transferase 31 Units/L (13-39); BUN/Creatinine Ratio 63 (6-26); Bilirubin,Total 1.5 mg/dL (0.3-1.0); Blood Urea Nitrogen 42 mg/dL (8-23); Calcium 9.7 mg/dL (8.6-10.3); Carbon Dioxide 33 mEq/L (23-29); Chloride 103 mEq/L (98-107); Globulin 2.6 g/dL (2.4-3.5); Glucose 176 mg/dL (70-105); Osmolality,Calculated 309 (280-300); Sodium 142 mEq/L (136-145); eGFR For African Americans > 60 (> 60); eGFR For Non-African Americans > 60 (> 60)
[2021-06-12 07:13] LABS: Lymphocytes # 89.3 K/mcL (0.6-4.6); Neutrophils # 12.2 K/mcL (1.6-8.9); Platelet Estimate Normal (Normal)
[2021-06-12] MEDS: Insulin LISPRO 300 UNITS/3 ML VIAL SUBQ SCH ×4 (07:16→20:09)
[2021-06-12] MEDS: Nystatin SUSP 5 ML UD.LIQ BC SCH ×4 (07:16→20:09)
[2021-06-12] MEDS: Acetaminophen 325 MG TABLET PO PRN (07:17)
[2021-06-12] MEDS: *HR* OxyCODONE/APAP 5/325 TABLET PO PRN ×3 (07:17→20:08)
[2021-06-12] MEDS: ALPRAZolam 0.5 MG TABLET PO PRN ×3 (07:17→20:09)
[2021-06-12] MEDS: Furosemide 20 MG/2 ML VIAL IVP SCH ×2 (07:18→20:09)
[2021-06-12 07:22] LABS: Smudge Cells Present (Not Present)
[2021-06-12] MEDS: amLODIPine 5 MG TABLET PO SCH (20:08)
[2021-06-12] MEDS: Gabapentin 300 MG CAPSULE PO SCH (20:09)
[2021-06-13 03:07] LABS: Red Cell Distribution Width 12.7 % (11.5-14.5)
[2021-06-13 03:09] LABS: Hematocrit 36.9 % (35.3-44.9); Hemoglobin 11.7 g/dL (11.5-15.4); Mean Corpuscular HGB Conc 31.7 g/dL (31.6-35.5); Mean Corpuscular Hemoglobin 31.2 pg (28.0-33.3); Mean Corpuscular Volume 98.4 fL (83.0-100.0); Platelet Count 188 K/mcL (140-400); Red Blood Count 3.75 M/mcL (3.82-4.97)
[2021-06-13 03:13] LABS: White Blood Count 98.3 K/mcL (4.3-11.1)
[2021-06-13 03:26] LABS: BUN/Creatinine Ratio 66 (6-26); Blood Urea Nitrogen 43 mg/dL (8-23); Calcium 9.3 mg/dL (8.6-10.3); Carbon Dioxide 33 mEq/L (23-29); Chloride 101 mEq/L (98-107); Glucose 189 mg/dL (70-105); Osmolality,Calculated 304 (280-300); Potassium 3.8 mEq/L (3.5-5.1); Sodium 139 mEq/L (136-145); eGFR For African Americans > 60 (> 60); eGFR For Non-African Americans > 60 (> 60)
[2021-06-13 03:31] LABS: Lymphocytes # 90.4 K/mcL (0.6-4.6); Neutrophils # 7.9 K/mcL (1.6-8.9); Platelet Estimate Normal (Normal)
[2021-06-13] MEDS: *HR* Enoxaparin 40 MG/0.4 ML SYRINGE SQ SCH (05:02)
[2021-06-13] MEDS: *HR* OxyCODONE/APAP 5/325 TABLET PO PRN ×2 (08:19→12:28)
[2021-06-13] MEDS: Insulin LISPRO 300 UNITS/3 ML VIAL SUBQ SCH ×4 (08:19→21:18)
[2021-06-13] MEDS: Nystatin SUSP 5 ML UD.LIQ BC SCH ×4 (08:20→21:20)
[2021-06-13] MEDS: ALPRAZolam 0.5 MG TABLET PO PRN ×2 (08:20→12:27)
[2021-06-13] MEDS: Furosemide 20 MG/2 ML VIAL IVP SCH ×2 (08:21→21:19)
[2021-06-13] MEDS: amLODIPine 5 MG TABLET PO SCH (21:20)
[2021-06-13] MEDS: Gabapentin 300 MG CAPSULE PO SCH (21:20)
[2021-06-14] MEDS: *HR* Enoxaparin 40 MG/0.4 ML SYRINGE SQ SCH (04:35)
[2021-06-14 06:43] LABS: Immature Granulocytes % 0.3 % (0-4); Red Cell Distribution Width 12.6 % (11.5-14.5)
[2021-06-14 06:44] LABS: Hematocrit 40.8 % (35.3-44.9); Hemoglobin 12.9 g/dL (11.5-15.4); Lymphocytes # 109.3 K/mcL (0.6-4.6); Lymphocytes % 89.2 %; Mean Corpuscular HGB Conc 31.6 g/dL (31.6-35.5); Mean Corpuscular Hemoglobin 30.8 pg (28.0-33.3); Mean Corpuscular Volume 97.4 fL (83.0-100.0); Mean Platelet Volume 11.6 fL (9.4-12.4); Monocytes % 0.8 %; Platelet Count 170 K/mcL (140-400); Red Blood Count 4.19 M/mcL (3.82-4.97); Segmented Neutrophils % 9.7 %
[2021-06-14 06:48] LABS: Neutrophils # 11.9 K/mcL (1.6-8.9); White Blood Count 122.5 K/mcL (4.3-11.1)
[2021-06-14 07:01] LABS: BUN/Creatinine Ratio 63 (6-26); Blood Urea Nitrogen 41 mg/dL (8-23); Carbon Dioxide 35 mEq/L (23-29); Chloride 97 mEq/L (98-107); Glucose 182 mg/dL (70-105); Osmolality,Calculated 303 (280-300); Potassium 3.8 mEq/L (3.5-5.1); Sodium 139 mEq/L (136-145); eGFR For African Americans > 60 (> 60); eGFR For Non-African Americans > 60 (> 60)
[2021-06-14 07:08] LABS: Platelet Estimate Normal (Normal); Reactive Lymphocytes Present (Not Present); Smudge Cells Present (Not Present)
[2021-06-14] MEDS: Furosemide 20 MG/2 ML VIAL IVP SCH ×2 (09:43→20:31)
[2021-06-14] MEDS: *HR* OxyCODONE/APAP 5/325 TABLET PO PRN ×3 (09:44→20:30)
[2021-06-14] MEDS: ALPRAZolam 0.5 MG TABLET PO PRN ×3 (09:50→20:30)
[2021-06-14] MEDS: Insulin LISPRO 300 UNITS/3 ML VIAL SUBQ SCH ×4 (10:39→20:28)
[2021-06-14] MEDS: Nystatin SUSP 5 ML UD.LIQ BC SCH ×4 (10:46→20:29)
[2021-06-14] MEDS: amLODIPine 5 MG TABLET PO SCH (20:30)
[2021-06-14] MEDS: Gabapentin 300 MG CAPSULE PO SCH (20:30)
[2021-06-15] MEDS: *HR* Enoxaparin 40 MG/0.4 ML SYRINGE SQ SCH (05:26)
[2021-06-15 07:03] LABS: Hematocrit 41.2 % (35.3-44.9); Hemoglobin 12.6 g/dL (11.5-15.4); Mean Corpuscular HGB Conc 30.6 g/dL (31.6-35.5); Mean Corpuscular Hemoglobin 30.1 pg (28.0-33.3); Mean Corpuscular Volume 98.6 fL (83.0-100.0); Mean Platelet Volume 11.9 fL (9.4-12.4); Platelet Count 142 K/mcL (140-400); Red Blood Count 4.18 M/mcL (3.82-4.97); Red Cell Distribution Width 12.7 % (11.5-14.5)
[2021-06-15 07:06] LABS: White Blood Count 115.5 K/mcL (4.3-11.1)
[2021-06-15 07:22] LABS: Alanine Aminotransferase 45 Units/L (7-52); Albumin 3.5 g/dL (3.5-5.7); Albumin/Globulin Ratio 1.5 (1.1-2.2); Alkaline Phosphatase 124 Units/L (34-104); Aspartate Amino Transferase 27 Units/L (13-39); BUN/Creatinine Ratio 60 (6-26); Blood Urea Nitrogen 41 mg/dL (8-23); Calcium 9.9 mg/dL (8.6-10.3); Carbon Dioxide 37 mEq/L (23-29); Chloride 97 mEq/L (98-107); Globulin 2.4 g/dL (2.4-3.5); Glucose 239 mg/dL (70-105); Osmolality,Calculated 308 (280-300); Potassium 3.6 mEq/L (3.5-5.1); Sodium 140 mEq/L (136-145); Total Protein 5.9 g/dL (6.4-8.9); eGFR For African Americans > 60 (> 60); eGFR For Non-African Americans > 60 (> 60)
[2021-06-15] MEDS: *HR* OxyCODONE/APAP 5/325 TABLET PO PRN ×3 (09:07→21:11)
[2021-06-15] MEDS: Furosemide 20 MG/2 ML VIAL IVP SCH ×2 (09:07→21:12)
[2021-06-15] MEDS: Insulin LISPRO 300 UNITS/3 ML VIAL SUBQ SCH ×4 (09:08→21:11)
[2021-06-15] MEDS: Nystatin SUSP 5 ML UD.LIQ BC SCH ×4 (09:11→21:10)
[2021-06-15 09:19] LABS: Lymphocytes # 94.7 K/mcL (0.6-4.6); Neutrophils # 20.8 K/mcL (1.6-8.9); Platelet Estimate Slight Decrease (Normal); Reactive Lymphocytes Present (Not Present); Smudge Cells Present (Not Present)
[2021-06-15] MEDS: ALPRAZolam 0.5 MG TABLET PO PRN ×3 (09:19→21:11)
[2021-06-15] MEDS: Melatonin 3 MG TABLET PO PRN (21:10)
[2021-06-15] MEDS: Gabapentin 300 MG CAPSULE PO SCH (21:10)
[2021-06-15] MEDS: amLODIPine 5 MG TABLET PO SCH (21:11)
[2021-06-16 01:05] LABS: Hematocrit 36.7 % (35.3-44.9); Hemoglobin 11.6 g/dL (11.5-15.4); Immature Platelets 11.9 % (1.1-6.1); Mean Corpuscular HGB Conc 31.6 g/dL (31.6-35.5); Mean Corpuscular Hemoglobin 30.9 pg (28.0-33.3); Mean Corpuscular Volume 97.6 fL (83.0-100.0); Mean Platelet Volume 11.8 fL (9.4-12.4); Platelet Count 120 K/mcL (140-400); Red Blood Count 3.76 M/mcL (3.82-4.97); Red Cell Distribution Width 12.8 % (11.5-14.5)
[2021-06-16 01:21] LABS: BUN/Creatinine Ratio 62 (6-26); Blood Urea Nitrogen 41 mg/dL (8-23); Calcium 9.4 mg/dL (8.6-10.3); Carbon Dioxide 36 mEq/L (23-29); Chloride 98 mEq/L (98-107); Glucose 157 mg/dL (70-105); Osmolality,Calculated 297 (280-300); Potassium 3.9 mEq/L (3.5-5.1); Sodium 137 mEq/L (136-145); eGFR For African Americans > 60 (> 60); eGFR For Non-African Americans > 60 (> 60)
[2021-06-16 01:23] LABS: White Blood Count 96.2 K/mcL (4.3-11.1)
[2021-06-16 02:35] LABS: Lymphocytes # 74.1 K/mcL (0.6-4.6); Monocytes # 2.9 K/mcL (0.0-1.3); Neutrophils # 19.2 K/mcL (1.6-8.9)
[2021-06-16 02:36] LABS: Platelet Estimate Slight Decrease (Normal); Reactive Lymphocytes Present (Not Present)
[2021-06-16] MEDS: *HR* Enoxaparin 40 MG/0.4 ML SYRINGE SQ SCH (05:47)
[2021-06-16] MEDS: Furosemide 20 MG/2 ML VIAL IVP SCH (08:36)
[2021-06-16] MEDS: Nystatin SUSP 5 ML UD.LIQ BC SCH ×4 (08:36→20:26)
[2021-06-16] MEDS: *HR* OxyCODONE/APAP 5/325 TABLET PO PRN ×3 (09:03→20:38)
[2021-06-16] MEDS: ALPRAZolam 0.5 MG TABLET PO PRN ×2 (09:05→12:32)
[2021-06-16] MEDS: Insulin LISPRO 300 UNITS/3 ML VIAL SUBQ SCH ×4 (09:30→20:26)
[2021-06-16] MEDS: amLODIPine 5 MG TABLET PO SCH (20:26)
[2021-06-16] MEDS: Gabapentin 300 MG CAPSULE PO SCH (20:26)
[2021-06-16] MEDS: Melatonin 3 MG TABLET PO PRN (20:39)
[2021-06-16] MEDS ORDERED: ALPRAZolam 0.5 MG TABLET PO ONE (20:49)
[2021-06-17 01:00] LABS: Basophils % 0.1 %; Hematocrit 33.6 % (35.3-44.9); Immature Granulocytes % 0.3 % (0-4); Lymphocytes % 87.9 %; Monocytes % 0.9 %
[2021-06-17 01:02] LABS: Basophils # 0.1 K/mcL (0.0-0.2); Eosinophils # 0.2 K/mcL (0.0-0.6); Eosinophils % 0.2 %; Hemoglobin 10.7 g/dL (11.5-15.4); Immature Platelets 11.1 % (1.1-6.1); Mean Corpuscular HGB Conc 31.8 g/dL (31.6-35.5); Mean Corpuscular Hemoglobin 31.5 pg (28.0-33.3); Mean Corpuscular Volume 98.8 fL (83.0-100.0); Mean Platelet Volume 12.1 fL (9.4-12.4); Monocytes # 0.8 K/mcL (0.0-1.3); Neutrophils # 9.6 K/mcL (1.6-8.9); Platelet Count 114 K/mcL (140-400); Red Cell Distribution Width 12.7 % (11.5-14.5); Segmented Neutrophils % 10.6 %
[2021-06-17 01:14] LABS: Lymphocytes # 79.6 K/mcL (0.6-4.6)
[2021-06-17 01:17] LABS: BUN/Creatinine Ratio 62 (6-26); Blood Urea Nitrogen 39 mg/dL (8-23); Calcium 9.1 mg/dL (8.6-10.3); Carbon Dioxide 37 mEq/L (23-29); Chloride 96 mEq/L (98-107); Glucose 137 mg/dL (70-105); Osmolality,Calculated 292 (280-300); Potassium 3.8 mEq/L (3.5-5.1); Sodium 135 mEq/L (136-145); eGFR For African Americans > 60 (> 60); eGFR For Non-African Americans > 60 (> 60)
[2021-06-17 01:22] LABS: White Blood Count 90.6 K/mcL (4.3-11.1)
[2021-06-17 01:25] LABS: Platelet Estimate Normal (Normal); Reactive Lymphocytes Present (Not Present); Smudge Cells Present (Not Present)
[2021-06-17] MEDS: *HR* Enoxaparin 40 MG/0.4 ML SYRINGE SQ SCH (05:22)
[2021-06-17] MEDS: *HR* OxyCODONE/APAP 5/325 TABLET PO PRN ×3 (09:08→19:54)
[2021-06-17] MEDS: Nystatin SUSP 5 ML UD.LIQ BC SCH ×4 (09:09→19:54)
[2021-06-17] MEDS: ALPRAZolam 0.5 MG TABLET PO PRN ×3 (09:09→19:54)
[2021-06-17] MEDS: Insulin LISPRO 300 UNITS/3 ML VIAL SUBQ SCH ×4 (09:16→19:55)
[2021-06-17] MEDS: Gabapentin 300 MG CAPSULE PO SCH (19:54)
[2021-06-17] MEDS: Melatonin 3 MG TABLET PO PRN (19:54)
[2021-06-17] MEDS: amLODIPine 5 MG TABLET PO SCH (19:55)
[2021-06-18 03:22] LABS: Basophils % 0.1 %; Eosinophils % 0.2 %; Immature Granulocytes % 0.2 % (0-4); Segmented Neutrophils % 8.9 %
[2021-06-18 03:23] LABS: Basophils # 0.1 K/mcL (0.0-0.2); Eosinophils # 0.2 K/mcL (0.0-0.6); Hematocrit 37.7 % (35.3-44.9); Hemoglobin 11.5 g/dL (11.5-15.4); Lymphocytes # 83.2 K/mcL (0.6-4.6); Lymphocytes % 89.8 %; Mean Corpuscular HGB Conc 30.5 g/dL (31.6-35.5); Mean Corpuscular Hemoglobin 30.3 pg (28.0-33.3); Mean Corpuscular Volume 99.2 fL (83.0-100.0); Mean Platelet Volume 11.8 fL (9.4-12.4); Monocytes % 0.8 %; Neutrophils # 8.2 K/mcL (1.6-8.9); Platelet Count 105 K/mcL (140-400); Red Cell Distribution Width 12.8 % (11.5-14.5)
[2021-06-18 03:57] LABS: BUN/Creatinine Ratio 53 (6-26); Blood Urea Nitrogen 31 mg/dL (8-23); Calcium 9.1 mg/dL (8.6-10.3); Carbon Dioxide 39 mEq/L (23-29); Chloride 95 mEq/L (98-107); Glucose 133 mg/dL (70-105); Osmolality,Calculated 290 (280-300); Potassium 4.8 mEq/L (3.5-5.1); Sodium 136 mEq/L (136-145); eGFR For African Americans > 60 (> 60); eGFR For Non-African Americans > 60 (> 60)
[2021-06-18 05:04] LABS: Monocytes # 0.7 K/mcL (0.0-1.3); White Blood Count 92.6 K/mcL (4.3-11.1)
[2021-06-18 05:05] LABS: Platelet Estimate Decreased (Normal)
[2021-06-18] MEDS: *HR* Enoxaparin 40 MG/0.4 ML SYRINGE SQ SCH (05:15)
[2021-06-18] MEDS: Insulin LISPRO 300 UNITS/3 ML VIAL SUBQ SCH ×3 (07:36→16:34)
[2021-06-18] MEDS: ALPRAZolam 0.5 MG TABLET PO PRN (08:12)
[2021-06-18] MEDS: Nystatin SUSP 5 ML UD.LIQ BC SCH ×3 (08:12→16:45)
[2021-06-18] MEDS: *HR* OxyCODONE/APAP 5/325 TABLET PO PRN ×2 (08:12→13:10)
[2021-06-18 10:52] VITALS: BP 126/69; PULSE 84; TEMP 97.9; O2SAT 92
[2021-06-18] MEDS ORDERED: ALPRAZolam 0.25 MG TABLET PO PRN (13:18)
[2021-06-18 14:41] LABS: Adenovirus Not Detected (Not Detect); Bordetella Pertussis Not Detected (Not Detect); Chlamydophila pneumoniae Not Detected (Not Detect); Coronavirus 229E Not Detected (Not Detect); Coronavirus HKU1 Not Detected (Not Detect); Coronavirus NL63 Not Detected (Not Detect); Coronavirus OC43 Not Detected (Not Detect); Human Metapneumovirus Not Detected (Not Detect); Human Rhinovirus/Enterovirus Not Detected (Not Detect); Influenza A Subtype 2009 H1 Not Detected (Not Detect); Influenza B Not Detected (Not Detect); Mycoplasma pneumoniae Not Detected (Not Detect); Parainfluenza Virus 1 Not Detected (Not Detect); Parainfluenza Virus 2 Not Detected (Not Detect); Parainfluenza Virus 3 Not Detected (Not Detect); Parainfluenza Virus 4 Not Detected (Not Detect); Respiratory Syncytial Virus Not Detected (Not Detect); SARS-CoV-2 Not Detected (Not Detect)
== END 2021-06-18 18:37 | DRG 871 ==
LOC: 2NENU → OBSVTOIN 06-04 01:20 → SUATTDRO 06-04 01:20
PROVIDERS: ADMIT Internal Medicine; ATTEND Internal Medicine